=== PATIENT | male | born 1980 | race Caucasian/White ===

== ENCOUNTER 2018-04-24 15:48 | Inpatient (IN) | payer OTHER, MEDICARE ==
[~2018-04-24] VITALS: Ht 157.5 cm; Wt 54.6 kg
[~2018-04-24 15:48] MED LIST: FISH500C PO; LANTUS2P SQ; NOVONP2 SQ; ZOCO5TAB PO
[2018-04-24 15:55] VITALS: BP 120/77; PULSE 75; RESP 15; TEMP 98.1; O2SAT 100
--- NOTE | 2018-04-24 16:06 | PD ---
HPI Chief Complaint: Altered Mental Status Time Seen by Provider: 15:56 Travel History International Travel<30 days: No Contact w/Intl Traveler<30days: No Traveled to known affect area: No History of Present Illness HPI 38-year-old male presents under [place] act initiated by the Police Department. According to his paperwork he has a history of depression. He has been having trouble paying his bills and he told the police matron that he was considering "suicide by copper tapper." The patient reports that he has chronic feelings of depression. He reports that today the nurse at [facility] called him in regards to recent hospitalization at outside emergency room for a hypoglycemic episode. He told her how he was feeling psychiatrically and she called the police who placed him under Quigley act. He reports that although he does have thoughts of suicide sometimes he feels that he would never actually hurt himself because that would upset the people that he cares about. He denies any drug or alcohol use. He has no other complaints. PFSH Past Medical History Arthritis: No Asthma: No Autoimmune Disease: No Blood Disorders: No Anxiety: Yes Depression: Yes Cancer: No Cardiovascular Problems: No COPD: No Cerebrovascular Accident: No Diabetes: Yes Diminished Hearing: No Endocrine: Yes Glaucoma: No Genitourinary: No Headaches: Yes Musculoskeletal: Yes Neurologic: Yes (CEREBRAL PALSY) Psychiatric: Yes Respiratory: No Seizures: No Thyroid Disease: No Past Surgical History Abdominal Surgery: No Cardiac Surgery: No Ear Surgery: No Endocrine Surgery: No Eye Surgery: No Genitourinary Surgery: No Gynecologic Surgery: No Oral Surgery: No Thoracic Surgery: No Other Surgery: Yes (AT AGE 2 HAMSTRING SURGERY, 1994-RECONSTRUCTIVE FEET, 1996- RECONSTRUCTIVE F) Social History Alcohol Use: No Tobacco Use: No Substance Use: No Allergies-Medications (Allergen,Severity, Reaction): Coded Allergies: No Known Allergies (Verified Adverse Reaction, Unknown, 04/24/18) Reported Meds & Prescriptions Reported Meds & Active Scripts Active Reported Zocor (Simvastatin) 5 Mg Tab 5 Mg PO DAILY Fish Oil ([place]-3 Fatty Acids) 500 Mg Cap 1 Tab PO DAILY Lantus Inj (Insulin Glargine) 1,000 Unit/10 Ml Vial 32 Units SQ TID Novolin N Inj (Insulin Human NPH) 1,000 Unit/10 Ml Vial 0 SQ DIRECTED Sliding Scale As Directed. Review of Systems Except as stated in HPI: all other systems reviewed are Neg Physical Exam Narrative GENERAL: Well-developed well-nourished male in no acute distress SKIN: Warm and dry. HEAD: Atraumatic. Normocephalic. EYES: Pupils equal and round. No scleral icterus. No injection or drainage. ENT: No nasal bleeding or discharge. Mucous membranes pink and moist. NECK: Trachea midline. No JVD. CARDIOVASCULAR: Regular rate and rhythm. No murmur appreciated. RESPIRATORY: No accessory muscle use. Clear to auscultation. Breath sounds equal bilaterally. GASTROINTESTINAL: Abdomen soft, non-tender, nondistended. Hepatic and splenic margins not palpable. MUSCULOSKELETAL: No obvious deformities. No clubbing. No cyanosis. No edema. NEUROLOGICAL: Awake and alert. No obvious cranial nerve deficits. Motor grossly within normal limits. Normal speech. PSYCHIATRIC: Appropriate mood and affect; insight and judgment normal. Data Data Last Documented VS Vital Signs Date Time Temp Pulse Resp B/P (MAP) Pulse Ox O2 Delivery O2 Flow Rate FiO2 04/24/18 16:00 88 15 100 Room Air 04/24/18 15:55 98.1 120/77 (91) Orders Orders Complete Blood Count With Diff (04/24/18 16:04) Comprehensive Metabolic Panel (04/24/18 16:04) Thyroid Stimulating Hormone (04/24/18 16:04) Psych Screen (04/24/18 16:04) Drug Screen, Random Urine (04/24/18 16:04) Alcohol (Ethanol) (04/24/18 16:04) Labs Laboratory Tests Test 04/24/18 16:20 04/24/18 16:35 White Blood Count 5.8 TH/MM3 Red Blood Count 4.10 MIL/MM3 Hemoglobin 13.6 GM/DL Hematocrit 39.7 % Mean Corpuscular Volume 96.7 FL Mean Corpuscular Hemoglobin 33.0 PG Mean Corpuscular Hemoglobin Concent 34.2 % Red Cell Distribution Width 13.9 % Platelet Count 182 TH/MM3 Mean Platelet Volume 8.3 FL Neutrophils (%) (Auto) 67.5 % Lymphocytes (%) (Auto) 24.5 % Monocytes (%) (Auto) 6.5 % Eosinophils (%) (Auto) 1.0 % Basophils (%) (Auto) 0.5 % Neutrophils # (Auto) 3.9 TH/MM3 Lymphocytes # (Auto) 1.4 TH/MM3 Monocytes # (Auto) 0.4 TH/MM3 Eosinophils # (Auto) 0.1 TH/MM3 Basophils # (Auto) 0.0 TH/MM3 CBC Comment DIFF FINAL Differential Comment Blood Urea Nitrogen 14 MG/DL Creatinine 0.75 MG/DL Random Glucose 156 MG/DL Total Protein 6.2 GM/DL Albumin 2.9 GM/DL Calcium Level 8.5 MG/DL Alkaline Phosphatase 148 U/L Aspartate Amino Transf (AST/SGOT) 42 U/L Alanine Aminotransferase (ALT/SGPT) 40 U/L Total Bilirubin 0.3 MG/DL Sodium Level 142 MEQ/L Potassium Level 3.8 MEQ/L Chloride Level 105 MEQ/L Carbon Dioxide Level 27.2 MEQ/L Anion Gap 10 MEQ/L Estimat Glomerular Filtration Rate 116 ML/MIN Thyroid Stimulating Hormone 3rd Gen 3.360 uIU/ML Ethyl Alcohol Level LESS THAN 3 MG/DL Urine Opiates Screen NEG Urine Barbiturates Screen NEG Urine Amphetamines Screen NEG Urine Benzodiazepines Screen NEG Urine Cocaine Screen NEG Urine Cannabinoids Screen NEG MDM Medical Decision Making Medical Screen Exam Complete: Yes Emergency Medical Condition: Yes Medical Record Reviewed: Yes Differential Diagnosis Adjustment reaction, acute psychosis, major depressive disorder, depressive disorder not otherwise specified, substance-induced mood disorder, schizoaffective disorder Narrative Course 38-year-old male presents under Quigley act for psychiatric evaluation. Mental health screening discussed with the patient. Psychiatric screen ordered. Medically cleared. Diagnosis Primary Impression: Medical clearance for psychiatric admission Tushar Redman April 24, 2018 16:06
[2018-04-24 16:57] LABS: AUTOMATED NEUTROPHIL # 3.9 TH/MM3 (1.8-7.7); BASOPHIL % 0.5 % (0.0-2.0); EOSINOPHIL # 0.1 TH/MM3 (0-0.4); HEMATOCRIT 39.7 % (39.0-51.0); HEMOGLOBIN 13.6 GM/DL (13.0-17.0); LYMPH % 24.5 % (9.0-44.0); LYMPHOCYTE # 1.4 TH/MM3 (1.0-4.8); MEAN CELL VOLUME 96.7 FL (80.0-100.0); MEAN CORPUSCULAR HGB CONC 34.2 % (32.0-36.0); MEAN PLATELET VOLUME 8.3 FL (7.0-11.0); MONO % 6.5 % (0.0-8.0); MONOCYTE # 0.4 TH/MM3 (0-0.9); NEUT % 67.5 % (16.0-70.0); PLATELET COUNT 182 TH/MM3 (150-450); RED CELL DISTRIBUTION WIDTH 13.9 % (11.6-17.2); WHITE BLOOD COUNT 5.8 TH/MM3 (4.0-11.0)
[2018-04-24 17:12] LABS: BLOOD UREA NITROGEN 14 MG/DL (7-18)
[2018-04-24 17:21] LABS: ALBUMIN 2.9 GM/DL (3.4-5.0); ALT (GPT) 40 U/L (12-78); AST (GOT) 42 U/L (15-37); BICARBONATE 27.2 MEQ/L (21.0-32.0); CALCIUM 8.5 MG/DL (8.5-10.1); CHLORIDE 105 MEQ/L (98-107); CREATININE 0.75 MG/DL (0.60-1.30); GLOMERULAR FILTRATION RATE 116 ML/MIN (>89); GLUCOSE,RANDOM 156 MG/DL (74-106); SODIUM (NA) 142 MEQ/L (136-145)
[2018-04-24 17:22] LABS: ALKALINE PHOSPHATASE 148 U/L (45-117); TOTAL BILIRUBIN ADULT 0.3 MG/DL (0.2-1.0); TOTAL PROTEIN 6.2 GM/DL (6.4-8.2)
[2018-04-24 18:52] VITALS: BP 123/83; PULSE 92; O2SAT 97
[2018-04-24] MEDS ORDERED: NOVOLOGP2 SQ (19:08)
[2018-04-24] MEDS ORDERED: ATOR80TA45 PO (19:08)
[2018-04-24] MEDS ORDERED: LEVO88TA2 PO (19:08)
[2018-04-24] MEDS ORDERED: KEPP10002 PO (19:09)
[2018-04-24 19:12] VITALS: BP 126/90; PULSE 90; RESP 15; O2SAT 97
--- NOTE | 2018-04-24 23:41 | PD ---
Physical Exam Narrative Pt was seen and evaluated by previous provider and medically cleared. Pt has type 1 DM and requested the nurse check his glucose after he finished his meal and glucose is elevated at 489. Said he just remember he is suppose to check his glucose when he eats but did not. Pt request to be place on insulin sliding scale which has been ordered. Denies any complaints. Pt is well appearing. Pt is pending psych evaluation which would not happen until the morning. Data Data Last Documented VS Vital Signs Date Time Temp Pulse Resp B/P (MAP) Pulse Ox O2 Delivery O2 Flow Rate FiO2 04/24/18 19:12 90 15 126/90 (102) 97 Room Air 04/24/18 15:55 98.1 Orders Orders Complete Blood Count With Diff (04/24/18 16:04) Comprehensive Metabolic Panel (04/24/18 16:04) Thyroid Stimulating Hormone (04/24/18 16:04) Psych Screen (04/24/18 16:04) Drug Screen, Random Urine (04/24/18 16:04) Alcohol (Ethanol) (04/24/18 16:04) Diet 1800 Ada Cons Carb (04/24/18 Dinner) Blood Glucose Goal (Criteria) (04/24/18 23:34) Hypoglycemia 70 Mg/Dl Or < (04/24/18 23:34) Notify Dr: Other (04/24/18 23:34) Dextrose 50% In Teddy (Vial) Inj (D50w (Vi (04/24/18 23:45) Glucagon Inj (Glucagon Inj) (04/24/18 23:45) Insulin Human Reg Supp Scale (Novolin R (04/25/18 08:00) Insulin Human Reg Supp Scale (Novolin R (04/24/18 23:45) Notify Dr: Other (04/25/18 08:19) Admit Order (Ed Use Only) (04/25/18 ) Labs Laboratory Tests Test 04/24/18 16:20 04/24/18 16:35 White Blood Count 5.8 TH/MM3 Red Blood Count 4.10 MIL/MM3 Hemoglobin 13.6 GM/DL Hematocrit 39.7 % Mean Corpuscular Volume 96.7 FL Mean Corpuscular Hemoglobin 33.0 PG Mean Corpuscular Hemoglobin Concent 34.2 % Red Cell Distribution Width 13.9 % Platelet Count 182 TH/MM3 Mean Platelet Volume 8.3 FL Neutrophils (%) (Auto) 67.5 % Lymphocytes (%) (Auto) 24.5 % Monocytes (%) (Auto) 6.5 % Eosinophils (%) (Auto) 1.0 % Basophils (%) (Auto) 0.5 % Neutrophils # (Auto) 3.9 TH/MM3 Lymphocytes # (Auto) 1.4 TH/MM3 Monocytes # (Auto) 0.4 TH/MM3 Eosinophils # (Auto) 0.1 TH/MM3 Basophils # (Auto) 0.0 TH/MM3 CBC Comment DIFF FINAL Differential Comment Blood Urea Nitrogen 14 MG/DL Creatinine 0.75 MG/DL Random Glucose 156 MG/DL Total Protein 6.2 GM/DL Albumin 2.9 GM/DL Calcium Level 8.5 MG/DL Alkaline Phosphatase 148 U/L Aspartate Amino Transf (AST/SGOT) 42 U/L Alanine Aminotransferase (ALT/SGPT) 40 U/L Total Bilirubin 0.3 MG/DL Sodium Level 142 MEQ/L Potassium Level 3.8 MEQ/L Chloride Level 105 MEQ/L Carbon Dioxide Level 27.2 MEQ/L Anion Gap 10 MEQ/L Estimat Glomerular Filtration Rate 116 ML/MIN Thyroid Stimulating Hormone 3rd Gen 3.360 uIU/ML Ethyl Alcohol Level LESS THAN 3 MG/DL Urine Opiates Screen NEG Urine Barbiturates Screen NEG Urine Amphetamines Screen NEG Urine Benzodiazepines Screen NEG Urine Cocaine Screen NEG Urine Cannabinoids Screen NEG MDM Supervised Visit with NOHEMI: Yes Diagnosis Primary Impression: Medical clearance for psychiatric admission Osiris Carrera DO April 24, 2018 23:41
[2018-04-24] MEDS ORDERED: GLUCAGON 1 MG/ML VIAL OTHER PRN (23:45)
[2018-04-24] MEDS ORDERED: INSULIN NovoLIN REGULAR SUPPLEMENTAL SCALE SQ SCH (23:45)
[2018-04-24] MEDS ORDERED: DEXTROSE 50% IN WATER 50 ML VIAL(D50) IV PUSH PRN (23:45)
[2018-04-25] MEDS ORDERED: INSULIN NovoLIN REGULAR SUPPLEMENTAL SCALE SQ SCH (08:00)
[2018-04-25] MEDS ORDERED: ACETAMINOPHEN 325 MG TAB PO PRN (08:30)
[2018-04-25] MEDS ORDERED: DEXTROSE 50% IN WATER 50 ML VIAL(D50) IV PUSH PRN ×2 (08:30→14:45)
[2018-04-25] MEDS ORDERED: ALUMINUM/MAGNESIUM/SIMETH 30 ML CUP PO PRN (08:30)
[2018-04-25] MEDS ORDERED: GLUCAGON 1 MG/ML VIAL OTHER PRN ×2 (08:30→14:45)
[2018-04-25] MEDS ORDERED: MAGNESIUM HYDROXIDE SUSP 30 ML CUP PO PRN (08:30)
--- NOTE | 2018-04-25 08:38 | HHI.HP ---
Provisional Diagnosis Admission Date 04/25/2018 Orgas I. 1. Adjustment disorder with mixed disturbance of emotions and conduct Orgas II. 1. 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 Express and informed consent means consent voluntarily given in writing, by a competent person, after sufficient explanation and disclosure of the subject matter involved to enable the person to make a knowing and willful decision without any element of force, fraud, deceit, duress, or other form of constraint or coercion. This person is 18 years of age or older, is not now known to be incompetent to consent to treatment with a guardian advocate, and does not have a health care surrogate or proxy currently making medical treatment decisions. I have found this person to be one of the following: [] Competent to provide express and informed consent, as defined above, for voluntary admission to this facility and is competent to provide express and informed consent for treatment. He/she has the consistent capacity to make well reasoned, willful, and knowing decisions concerning his or her medical or mental health treatment. The person fully and consistently understands the purpose of the admission for examination/placement and is fully capable of personally exercising all rights [place] [] Incompetent to provide express and informed consent to voluntary admission, and this is incompetent to provide express and informed consent to treatment. The person must be transferred to involuntary status and a petition for a guardian advocate filed with the Circuit Court. [x] Refusing to provide express and informed consent to voluntary admission but is competent to provide express and informed consent for treatment. The person must be discharged or transferred to involuntary status. Form shall be completed within 24 hours of a person's arrival at the receiving facility and filed in the clinical record of each person: 1. Admitted on a voluntary basis 2. Permitted to provide express and informed consent to his/her own treatment 3. Allowed to transfer from involuntary to voluntary status 4. Prior to permitting a person to consent to his or her own treatment after having been previously found incompetent to consent to treatment. History of Present Illness Capacity: Has Capacity (To consent for medication/treatment) Psych Chief Complaint: Suicidal ideation HPI Mr. Evangelista is a 38-year-old male with a reported history of depression who presents under a [place]ugley act by law enforcement alleging that the patient "stated repeatedly he wants to and would consider the option of 'suicide by helicopter crew chief.'" Reviewing the electronic medical record, I note the patient was seen in consultation by Dr. Sagastume in 2004 with a diagnosis of major depression at that time. Patient seen and examined. Chart reviewed. Case discussed with staff. On my examination today, the patient reports a history of depression stretching back 30 years. He is a verbose and somewhat rambling historian. He has been feeling increasingly depressed over the last several days, chiefly secondary to financial stressors. He tells me that there is "a black spot in my soul." He tells me that he has been contemplating suicide "because [I] want the pain to stop." He tells me that he asked the officer who responded for the Quigley act to shoot him. He denies suicidal ideation presently, but this seems to be motivated and desire for discharge, and I suspect that he is not reliable to contract for safety in his present state. No hypomanic or manic symptoms. Denies any audiovisual hallucinations. Patient exhibits prominent personality disorder traits, mixed cluster B/C. He presents as needy, somewhat attention- seeking, dramatic, and has some narcissistic traits. Remainder of the psychiatric ROS is negative. No acute physical complaints. Past psychiatric history: Patient reports a history of depression. He is not presently under the care of a psychiatrist. He reports that he has historically been prescribed Prozac although this worsened his depression. He denies a history of psychiatric admissions. He reports 2 previous suicide attempts including by trying to inject air embolus with 1 of his insulin needles. Family history: Patient reports that his father struggled with some sort of mental illness and his mother completed suicide. Chemical dependency history: Patient denies any abuse of drugs or alcohol. Social history: The patient reports that he lives alone. He is single with no children. He has a pet guinea pig named popcsom. No reported access to guns or firearms. Review of Systems Except as stated in HPI: all other systems reviewed are Neg Past Family Social History Coded Allergies: No Known Allergies (Verified Adverse Reaction, Unknown, 04/24/18) Past Medical History Includes a history of cerebral palsy, diabetes and seizures Reported Medications Levetiracetam (Keppra) 1,000 Mg Tab, PO BID for Control Seizures, #60 TAB 0 Refills 04/24/18 Levothyroxine (Levothyroxine) 88 Mcg Tab, PO DAILY for Thyroid, #30 TAB 0 Refills 04/24/18 Atorvastatin (Atorvastatin) 80 Mg Tab, 80 MG PO DAILY for Cholesterol Management , #30 TAB 0 Refills 04/24/18 Insulin Aspart Inj (Novolog Inj) 1,000 Unit/10 Ml Vial, 0 SQ DIRECTED for Blood Sugar Management, #10 ML 0 Refills Sliding Scale as directed. 04/24/18 Insulin Glargine Inj (Lantus Inj) 1,000 Unit/10 Ml Vial, 34 UNITS SQ DAILY for Blood Sugar Management, VIAL 0 Refills 10/17/16 Discontinued Reported Medications Simvastatin (Zocor) 5 Mg Tab, 5 MG PO DAILY for Cholesterol Management, TAB 0 Refills 10/17/16 [place]-3 Fatty Acids (Fish Oil) 500 Mg Cap, 1 TAB PO DAILY 10/17/16 Insulin Human NPH Inj (Novolin N Inj) 1,000 Unit/10 Ml Vial, 0 SQ DIRECTED for Blood Sugar Management, ML 0 Refills Sliding Scale As Directed. 10/17/16 Current Medications Medications (Trade) Dose Ordered Sig/Sushil Route Start Time Stop Time Status Last Admin (D50w (Vial) Inj) 50 ml UNSCH PRN IV PUSH 04/24/18 23:45 (Glucagon Inj) 1 mg UNSCH PRN OTHER 04/24/18 23:45 (NovoLIN R SUPPLEMENTAL SCALE) 1 ACHS SLIDING SCALE SQ 04/24/18 23:45 04/24/18 23:58 Patient's Strengths (min. 2) In a monitored setting. Verbally fluent. Physical Exam Physical examination completed by ED provider. On my examination today, the patient appears to be in no acute physical distress. No motor abnormalities noted. He does have disconjugate gaze, likely chronic. Labs and vital signs reviewed: Vital Signs Vital Signs Date Time Temp Pulse Resp B/P (MAP) Pulse Ox O2 Delivery O2 Flow Rate FiO2 04/24/18 19:12 90 15 126/90 (102) 97 Room Air 04/24/18 15:55 98.1 Lab Results Test 04/24/18 16:20 04/24/18 16:35 White Blood Count 5.8 TH/MM3 Red Blood Count 4.10 MIL/MM3 Hemoglobin 13.6 GM/DL Hematocrit 39.7 % Mean Corpuscular Volume 96.7 FL Mean Corpuscular Hemoglobin 33.0 PG Mean Corpuscular Hemoglobin Concent 34.2 % Red Cell Distribution Width 13.9 % Platelet Count 182 TH/MM3 Mean Platelet Volume 8.3 FL Neutrophils (%) (Auto) 67.5 % Lymphocytes (%) (Auto) 24.5 % Monocytes (%) (Auto) 6.5 % Eosinophils (%) (Auto) 1.0 % Basophils (%) (Auto) 0.5 % Neutrophils # (Auto) 3.9 TH/MM3 Lymphocytes # (Auto) 1.4 TH/MM3 Monocytes # (Auto) 0.4 TH/MM3 Eosinophils # (Auto) 0.1 TH/MM3 Basophils # (Auto) 0.0 TH/MM3 CBC Comment DIFF FINAL Differential Comment Blood Urea Nitrogen 14 MG/DL Creatinine 0.75 MG/DL Random Glucose 156 MG/DL Total Protein 6.2 GM/DL Albumin 2.9 GM/DL Calcium Level 8.5 MG/DL Alkaline Phosphatase 148 U/L Aspartate Amino Transf (AST/SGOT) 42 U/L Alanine Aminotransferase (ALT/SGPT) 40 U/L Total Bilirubin 0.3 MG/DL Sodium Level 142 MEQ/L Potassium Level 3.8 MEQ/L Chloride Level 105 MEQ/L Carbon Dioxide Level 27.2 MEQ/L Anion Gap 10 MEQ/L Estimat Glomerular Filtration Rate 116 ML/MIN Thyroid Stimulating Hormone 3rd Gen 3.360 uIU/ML Ethyl Alcohol Level LESS THAN 3 MG/DL Urine Opiates Screen NEG Urine Barbiturates Screen NEG Urine Amphetamines Screen NEG Urine Benzodiazepines Screen NEG Urine Cocaine Screen NEG Urine Cannabinoids Screen NEG Mental Status Examination Appearance: Appropriate Consciousness: Alert Orientation: Person, Place (At least) Motor Activity: Other (Motor exam as above) Speech: Unremarkable Language: Adequate Fund of Knowledge: Adequate Attention and Concentration: Adequate Memory: Unremarkable (Grossly intact on clinical exam) Mood: Other (Depressed) Affect: Other (Restricted) Thought Process & Associations: Circumstantial Thought Content: Preoccupations Hallucination Type: None Delusion Type: None Suicidal Ideation: No (Unreliable to contract for safety) Suicidal Plan: No Suicidal Intention: No Homicidal Ideation: No Homicidal Plan: No Homicidal Intention: No Insight: Poor Judgment: Poor Assessment & Plan Problem List: (1) Adjustment disorder with mixed disturbance of emotions and conduct ICD Codes: F43.25 - Adjustment disorder with mixed disturbance of emotions and conduct (2) Mixed personality disorder ICD Codes: F60.89 - Other specific personality disorders Assessment & Plan 38-year-old male with psychiatric history as detailed above who presents under a Quigley act by law enforcement. On my examination today, the patient reports ongoing depression with recent suicidal ideation as noted. Although he presently denies suicidal ideation, I suspect this is motivated by his desire for discharge from the ED today, and I strongly believe that he is unreliable to contract for safety in his present state. He has multiple risk factors for self-harm including history of suicide attempts, family history of suicide attempt and prominent psychosocial stressors as well as personality disorder. I will plan to admit the patient to the inpatient psychiatric unit for observation and stabilization. Admit inpatient. Patient is declining to consent for voluntary admission. Involuntary status. I have completed first opinion. Consult for second opinion. Patient retains capacity to consent for medications. Patient is declining any psychotropic medications and so none have been ordered. Medication reconciliation was not completed by nursing staff, and I have instructed them to complete this and notify me when it is done so that I might reconcile patient's general medical medications. In the meantime, I will order Accu-Cheks, sliding scale and seizure precautions. Diabetic diet. Hospitalist consult. Vitals every shift. Counselor to see. Collateral information. Disposition planning. Estimated length of stay: 5-7 days. Discharge Planning Pending outcome of observation Request HC Surrog/Guard Advoc?: No Reilly Fields MD April 25, 2018 08:38
[2018-04-25 12:05] VITALS: BP 140/72; PULSE 106; RESP 17; TEMP 97.8; O2SAT 98
[2018-04-25] MEDS: levETIRAcetam 500 MG TAB PO SCH ×2 (14:30→20:32)
--- NOTE | 2018-04-25 14:38 | PD.CONS ---
HPI Service [facility] Hospitalists Consult Requested By Reason for Consult Medical management Primary Care Physician Unknown Diagnoses: History of Present Illness 38-year-old male with PMH significant for DM I, seizures disorder, hypothyroidism,and depression who presents to [facility] under [place] act after reporting he wanted to and considered "suicide by copy operator". Patient most recently going through some financial difficulties. [facility] has been consulted to assist with management of medical issues. Patient is seen and examined in [facility] in no acute distress. He reports that he uses both an ISS and long acting insulin to manage his DM. He reports that his diabetes is not a well controlled as it should be. He follows up with neurologist for his seizures and reports that his last seizure was around December or January of this year. He is asking when he will be discharged. He denies any fevers, chills, N/V/D, headache , dizziness, SOB, cough, dysuria or constipation. He voices no acute complaints of concerns at this moment. Review of Systems Except as stated in HPI: all other systems reviewed are Neg Past Family Social History Allergies: Coded Allergies: No Known Allergies (Verified Allergy, Unknown, 04/25/18) Past Medical History DM I hypothyroidism seizures cerebral palsy Past Surgical History Hamstring surgery reconstruction surgery of bilateral feet Tib/fib fracture surgery Reported Medications Reported Meds & Active Scripts Active Reported Keppra (Levetiracetam) 1,000 Mg Tab 1,000 Mg PO BID Levothyroxine (Levothyroxine Sodium) 88 Mcg Tab 75 Mcg PO DAILY Atorvastatin (Atorvastatin Calcium) 80 Mg Tab 80 Mg PO DAILY Novolog Inj (Insulin Aspart) 1,000 Unit/10 Ml Vial 0 SQ DIRECTED Sliding Scale as directed. Lantus Inj (Insulin Glargine) 1,000 Unit/10 Ml Vial 34 Units SQ DAILY Active Ordered Medications Current Medications Medications (Trade) Dose Ordered Sig/Sushil Route Start Time Stop Time Status Last Admin (Benadryl) 50 mg HS PRN PO 04/25/18 21:00 (Tylenol) 650 mg Q4H PRN PO 04/25/18 08:30 (Milk Of Magnesia Liq) 30 ml DAILY PRN PO 04/25/18 08:30 (Mag-Al Plus Susp Liq) 30 ml Q6H PRN PO 04/25/18 08:30 (Habitrol 21 Mg Patch.24 Hr) 1 patch DAILY PRN T-DERMAL 04/25/18 15:00 (Lipitor) 80 mg DAILY PO 04/26/18 09:00 (Levemir Inj) 34 units DAILY SQ 04/26/18 09:00 (Keppra) 1,000 mg BID PO 04/25/18 14:30 (Synthroid) 75 mcg DAILY@0600 PO 04/26/18 06:00 (D50w (Vial) Inj) 50 ml UNSCH PRN IV PUSH 04/25/18 14:45 (Glucagon Inj) 1 mg UNSCH PRN OTHER 04/25/18 14:45 (NovoLOG SUPPLEMENTAL SCALE) 1 ACHS SLIDING SCALE SQ 04/25/18 17:00 Miscellaneous Information 1 HS T-DERMAL 04/25/18 21:00 Family History Mother: DM I Social History Tobacco: occasionally when he is very stressed, none in over 1 year Alcohol: socially Illicit drugs: denies Physical Exam Vital Signs Vital Signs Date Time Temp Pulse Resp B/P (MAP) Pulse Ox O2 Delivery O2 Flow Rate FiO2 04/25/18 12:05 97.8 106 17 140/72 (94) 98 04/25/18 11:31 04/24/18 19:12 90 15 126/90 (102) 97 Room Air 04/24/18 18:52 92 123/83 (96) 97 04/24/18 16:00 88 15 100 Room Air 04/24/18 15:55 98.1 75 15 120/77 (91) 100 Physical Exam GENERAL: This is a well-nourished, well-developed patient, in no apparent distress in [facility]. SKIN: No rashes, ecchymoses or lesions. Cool and dry. HEAD: Atraumatic. Normocephalic. EYES: Pupils equal round and reactive. Extraocular motions intact. No scleral icterus. No injection or drainage. ENT: Nose without bleeding, purulent drainage. Throat without erythema. Uvula midline. Poor dentition, airway patent. NECK: Trachea midline. No JVD. Supple. CARDIOVASCULAR: Regular rate and rhythm without murmurs, gallops, or rubs. RESPIRATORY: Clear to auscultation. Breath sounds equal bilaterally. No wheezes , rales, or rhonchi. GASTROINTESTINAL: Abdomen soft, non-tender, nondistended. No palpable masses. No guarding. MUSCULOSKELETAL: Extremities without clubbing, cyanosis, or edema. No joint tenderness. No calf tenderness. NEUROLOGICAL: Awake and alert, oriented x3. Cranial nerves II through XII intact. Sensory grossly within normal limits. 5/5 muscle strength bilateral upper extremities, 4/5 in bilateral lower extremities. Normal speech. Laboratory Laboratory Tests Test 04/24/18 16:20 04/24/18 16:35 White Blood Count 5.8 Red Blood Count 4.10 Hemoglobin 13.6 Hematocrit 39.7 Mean Corpuscular Volume 96.7 Mean Corpuscular Hemoglobin 33.0 Mean Corpuscular Hemoglobin Concent 34.2 Red Cell Distribution Width 13.9 Platelet Count 182 Mean Platelet Volume 8.3 Neutrophils (%) (Auto) 67.5 Lymphocytes (%) (Auto) 24.5 Monocytes (%) (Auto) 6.5 Eosinophils (%) (Auto) 1.0 Basophils (%) (Auto) 0.5 Neutrophils # (Auto) 3.9 Lymphocytes # (Auto) 1.4 Monocytes # (Auto) 0.4 Eosinophils # (Auto) 0.1 Basophils # (Auto) 0.0 CBC Comment DIFF FINAL Differential Comment Blood Urea Nitrogen 14 Creatinine 0.75 Random Glucose 156 Total Protein 6.2 Albumin 2.9 Calcium Level 8.5 Alkaline Phosphatase 148 Aspartate Amino Transf (AST/SGOT) 42 Alanine Aminotransferase (ALT/SGPT) 40 Total Bilirubin 0.3 Sodium Level 142 Potassium Level 3.8 Chloride Level 105 Carbon Dioxide Level 27.2 Anion Gap 10 Estimat Glomerular Filtration Rate 116 Thyroid Stimulating Hormone 3rd Gen 3.360 Ethyl Alcohol Level LESS THAN 3 Urine Opiates Screen NEG Urine Barbiturates Screen NEG Urine Amphetamines Screen NEG Urine Benzodiazepines Screen NEG Urine Cocaine Screen NEG Urine Cannabinoids Screen NEG Result Diagram: 04/24/18 1620 04/24/18 1620 Assessment and Plan Assessment and Plan 38-year-old male with PMH significant for DM I, seizures disorder, hypothyroidism,and depression who presents to [facility] under [facility] act after reporting he wanted to and considered "suicide by copy operator". Depression - Treatment per psych DM I - ADA diet, resume home Levemir, Accu-checks with ISS - Adjust medications accordingly, monitor for hypoglycemia Seizure disorder -continue home dose Keppra - Monitor for seizures Hypothyroidism HLD - Continue home dose Synthroid and Lipitor DVT prophylaxis-encourage ambulation Discussed with nurse and patient. Thank you for this consultation, will continue to follow along. Addendum: I, Roberto Meehan, as the attending have reviewed and agree with the overall plan as listed above. I did evaluate the patient, he appears to be in no acute distress sitting at the table eating. Lungs are clear bilaterally, awake, alert. Cooperative with physical exam. Nursing paged around 5:55 PM stating that the patient's blood sugars were checked to be over 500, given 9 units of low-dose sliding scale insulin were still over 500 with a very minimal response. Ordering 18 units one time of insulin and will upgrade sliding scale to medium dose sliding scale. I have timed for the patient to receive Levemir tonight of 34 units (Lantus at home 34 units). Vinod Tello April 25, 2018 14:38 Roberto Meehan MD April 25, 2018 17:56
--- NOTE | 2018-04-25 14:43 | HHI.PR ---
Objective Vitals Vital Signs Date Time Temp Pulse Resp B/P (MAP) Pulse Ox O2 Delivery O2 Flow Rate FiO2 04/25/18 12:05 97.8 106 17 140/72 (94) 98 04/25/18 11:31 04/24/18 19:12 90 15 126/90 (102) 97 Room Air 04/24/18 18:52 92 123/83 (96) 97 04/24/18 16:00 88 15 100 Room Air 04/24/18 15:55 98.1 75 15 120/77 (91) 100 I/O 04/24/18 04/24/18 04/24/18 04/25/18 04/25/18 04/25/18 07:00 15:00 23:00 07:00 15:00 23:00 Output Total 500 ml Balance -500 ml Output Urine Total 500 ml # Voids 1 Result Diagram: 04/24/18 1620 04/24/18 1620 Vinod Tello April 25, 2018 14:43
[2018-04-25] MEDS ORDERED: NICOTINE 21 MG/24 HR PATCH T-DERMAL PRN (15:00)
[2018-04-25] MEDS ORDERED: INSULIN ASPART SUPPLEMENTAL SCALE SQ SCH (17:00)
[2018-04-25] MEDS ORDERED: INSULIN ASPART 1,000 UNITS/10 ML VIAL SQ ONE (18:00)
[2018-04-25] MEDS: INSULIN ASPART SUPPLEMENTAL SCALE SQ SCH (20:31)
[2018-04-25] MEDS ORDERED: INSULIN DETEMIR 100 UNITS/ML VIAL SQ SCH (21:00)
[2018-04-25] MEDS ORDERED: REMOVE OLD NICODERM (NICOTINE) PATCH T-DERMAL SCH (21:00)
[2018-04-25] MEDS ORDERED: diphenhydrAMINE HCL 50 MG CAP PO PRN (21:00)
[2018-04-26] MEDS ORDERED: LEVOTHYROXINE SODIUM 75 MCG TAB PO SCH (06:00)
[2018-04-26 06:17] VITALS: BP 112/59; PULSE 72; RESP 16; TEMP 98; O2SAT 97
[2018-04-26] MEDS: INSULIN ASPART SUPPLEMENTAL SCALE SQ SCH (08:12)
[2018-04-26 08:43] LABS: ALBUMIN 3.1 GM/DL (3.4-5.0); AST (GOT) 20 U/L (15-37); BICARBONATE 28.6 MEQ/L (21.0-32.0); BLOOD UREA NITROGEN 25 MG/DL (7-18); CALCIUM 8.8 MG/DL (8.5-10.1); CHLORIDE 101 MEQ/L (98-107); CREATININE 0.86 MG/DL (0.60-1.30); GLOMERULAR FILTRATION RATE 99 ML/MIN (>89); GLUCOSE,RANDOM 134 MG/DL (74-106); SODIUM (NA) 140 MEQ/L (136-145)
[2018-04-26 08:44] LABS: ALT (GPT) 33 U/L (12-78); CHOLESTEROL 159 MG/DL (120-200)
[2018-04-26 08:46] LABS: ALKALINE PHOSPHATASE 128 U/L (45-117); CHOLESTEROL/ HDL RATIO 2.78 RATIO; HDL CHOLESTEROL 57.1 MG/DL (40.0-60.0); LDL CHOLESTEROL 81 MG/DL (0-99); TOTAL BILIRUBIN ADULT 0.3 MG/DL (0.2-1.0); TOTAL PROTEIN 6.7 GM/DL (6.4-8.2); TRIGLYCERIDES 105 MG/DL (42-150)
[2018-04-26] MEDS: levETIRAcetam 500 MG TAB PO SCH (08:56)
[2018-04-26] MEDS ORDERED: ATORVASTATIN 80 MG TAB PO SCH (09:00)
[2018-04-26] MEDS ORDERED: INSULIN DETEMIR 100 UNITS/ML VIAL SQ SCH (09:00)
[2018-04-26] MEDS ORDERED: POTASSIUM CHLORIDE 10 MEQ CONTROLLED RELEASE TAB PO SCH (09:15)
--- NOTE | 2018-04-26 11:23 | HHI.PR ---
Subjective Remarks in no acute distress. looks comfortable with no new complaints. blood sugar trend noted. had hypoglycemic episode earlier this morning which has resolved. d/w the RN. Objective Vitals Vital Signs Date Time Temp Pulse Resp B/P (MAP) Pulse Ox O2 Delivery O2 Flow Rate FiO2 04/26/18 06:17 98.0 72 16 112/59 (76) 97 04/25/18 12:05 97.8 106 17 140/72 (94) 98 04/25/18 11:31 Result Diagram: 04/24/18 1620 04/26/18 0718 Objective Remarks GENERAL: This is a well-nourished, well-developed patient, in no apparent distress. CARDIOVASCULAR: Regular rate and regular rhythm without murmurs, gallops, or rubs. RESPIRATORY: Clear to auscultation. Breath sounds equal bilaterally. No wheezes , rales, or rhonchi. GASTROINTESTINAL: Abdomen soft, non-tender, nondistended. Normal, active bowel sounds MUSCULOSKELETAL: Extremities without clubbing, cyanosis, or edema. NEURO: Awake and alert. Medications and IVs Inpatient Medications Acetaminophen (Tylenol) 650 mg Q4H PRN PO Pain 1-5 or Temp >101F; Start at 08:30 Al Hydrox/Mg Hydrox/Simethicone (Mag-Al Plus Susp Liq) 30 ml Q6H PRN PO DYSPEPSIA; Start 04/25/18 at 08:30 Atorvastatin Calcium (Lipitor) 80 mg DAILY PO Last administered on 04/26/18at 08 :56; Start 04/26/18 at 09:00 Dextrose (D50w (Vial) Inj) 50 ml UNSCH PRN IV PUSH HYPOGLYCEMIA-SEE COMMENTS; Start 04/25/18 at 14:45 Diphenhydramine HCl (Benadryl) 50 mg HS PRN PO INSOMNIA; Start 04/25/18 at 21: 00 Glucagon (Glucagon Inj) 1 mg UNSCH PRN OTHER HYPOGLYCEMIA-SEE COMMENTS Last administered on 04/26/18at 06:35; Start 04/25/18 at 14:45 Insulin Aspart (NovoLOG SUPPLEMENTAL SCALE) 1 ACHS SLIDING SCALE SQ Last administered on 04/25/18at 20:31; Start 04/25/18 at 21:00 Insulin Aspart (NovoLOG INJ) 18 units ONCE ONCE SQ Last administered on at 18:00; Start 04/25/18 at 18:00; Stop 04/25/18 at 18:01; Status DC Insulin Detemir (Levemir Inj) 34 units HS SQ Last administered on 04/25/18at 20: 23; Start 04/25/18 at 21:00; Status Future Hold Insulin Human Regular (NovoLIN R SUPPLEMENTAL SCALE) 1 ACHS SLIDING SCALE SQ Last administered on 04/24/18at 23:58; Start 04/24/18 at 23:45; Stop 04/25/18 at 08:26; Status DC Levetriacetam (Keppra) 1,000 mg BID PO Last administered on 04/26/18at 08:56; Start 04/25/18 at 14:30 Levothyroxine Sodium (Synthroid) 75 mcg DAILY@0600 PO Last administered on 04/26at 05:56; Start 04/26/18 at 06:00 Magnesium Hydroxide (Milk Of Magnesia Liq) 30 ml DAILY PRN PO CONSTIPATION; Start 04/25/18 at 08:30 Miscellaneous Information 1 HS T-DERMAL ; Start 04/25/18 at 21:00 Nicotine (Habitrol 21 Mg Patch.24 Hr) 1 patch DAILY PRN T-DERMAL NICOTINE CRAVING; Start 04/25/18 at 15:00 Potassium Chloride (KCl) 30 meq ONCE ONCE PO ; Start 04/26/18 at 12:00; Stop at 12:01 A/P Assessment and Plan Depression - Treatment per psych DM I hypoglycemic episode this morning - ADA diet, will resume home Levemir tonight if blood sugar stable; will lower the dose to 20 units qhs , Accu-checks with ISS; changed to low scale. - Adjust medications accordingly, monitor for recurrent hypoglycemia Hypokalemia; will replace and monitor. Seizure disorder -continue home dose Keppra - Monitor for seizures Hypothyroidism HLD - Continue home dose Synthroid and Lipitor DVT prophylaxis-encourage ambulation Discussed with nurse and patient. Abraham Toney MD April 26, 2018 11:23
[2018-04-26] MEDS ORDERED: DEXTROSE 50% IN WATER 50 ML VIAL(D50) IV PUSH PRN (11:30)
[2018-04-26] MEDS ORDERED: GLUCAGON 1 MG/ML VIAL OTHER PRN (11:30)
[2018-04-26] MEDS ORDERED: POTASSIUM CHLORIDE 10 MEQ CONTROLLED RELEASE TAB PO ONE (12:00)
[2018-04-26] MEDS ORDERED: INSULIN ASPART SUPPLEMENTAL SCALE SQ SCH (12:00)
--- NOTE | 2018-04-26 14:00 | HHI.DS ---
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 Evangelista is a 38-year-old male with a reported history of depression who presents under a Quigley act by law enforcement alleging that the patient "stated repeatedly he wants to and would consider the option of 'suicide by ems helicopter pilot.'" Reviewing the electronic medical record, I note the patient was seen in consultation by Dr. Sagastume in 2004 with a diagnosis of major depression at that time. Patient seen and examined. Chart reviewed. Case discussed with staff. On my examination today, the patient reports a history of depression stretching back 30 years. He is a verbose and somewhat rambling historian. He has been feeling increasingly depressed over the last several days, chiefly secondary to financial stressors. He tells me that there is "a black spot in my soul." He tells me that he has been contemplating suicide "because [I] want the pain to stop." He tells me that he asked the officer who responded for the Quigley act to shoot him. He denies suicidal ideation presently, but this seems to be motivated and desire for discharge, and I suspect that he is not reliable to contract for safety in his present state. No hypomanic or manic symptoms. Denies any audiovisual hallucinations. Patient exhibits prominent personality disorder traits, mixed cluster B/C. He presents as needy, somewhat attention- seeking, dramatic, and has some narcissistic traits. Remainder of the psychiatric ROS is negative. No acute physical complaints. Past psychiatric history: Patient reports a history of depression. He is not presently under the care of a psychiatrist. He reports that he has historically been prescribed Prozac although this worsened his depression. He denies a history of psychiatric admissions. He reports 2 previous suicide attempts including by trying to inject air embolus with 1 of his insulin needles. Family history: Patient reports that his father struggled with some sort of mental illness and his mother completed suicide. Chemical dependency history: Patient denies any abuse of drugs or alcohol. Social history: The patient reports that he lives alone. He is single with no children. He has a pet guinea pig named saskia. No reported access to guns or firearms. Tobacco Use In Past 30 Days: Cognitive Impairment Alcohol Use: Never Hospital Course Patient seen and henry with nurse Preeti, chart reviewed, the patient compliant medication. Above brief history dictated by Dr. Reilly Fields review noted and agreed with. Patient seen by me today he is alert oriented calm and cooperative states she was under some stress before talking with the insurance person. Leading to the comments that he made. He feels his brief stay here is given him the time to process these behaviors. He realizes the inappropriateness of his suicidal ideation. He is able contract with me to do no harm. Is also able contract of some thoughts return to take himself to a local ED or to our ED and asked for psychiatric screening. He does today plan denies suicidality or homicidality voices or visions. He does wish to have some talk therapy with us I did share with him are [place] outpatient support groups. He is willing to attempt to that also. Thus at this time I feel patient does not meet Quigley criteria I will lift Quigley act allow patient to be discharged to himself, no Rx by me, he may continue his own home scheduled medications follow-up with his PCP and with the [place] health support groups Results Blood Pressure 112 / 59 Vital Signs Date Time Temp Pulse Resp B/P (MAP) Pulse Ox O2 Delivery O2 Flow Rate FiO2 04/26/18 06:17 98.0 72 16 112/59 (76) 97 04/24/18 19:12 Room Air Laboratory Tests Test 04/24/18 16:20 04/24/18 16:35 04/26/18 07:18 Red Blood Count 4.10 MIL/MM3 (4.50-5.90) Random Glucose 156 MG/DL (74-106) 134 MG/DL (74-106) Total Protein 6.2 GM/DL (6.4-8.2) Albumin 2.9 GM/DL (3.4-5.0) 3.1 GM/DL (3.4-5.0) Alkaline Phosphatase 148 U/L (45-117) 128 U/L (45-117) Aspartate Amino Transf (AST/SGOT) 42 U/L (15-37) Blood Urea Nitrogen 25 MG/DL (7-18) Potassium Level 3.0 MEQ/L (3.5-5.1) Laboratory Results Test 04/26/18 07:18 Cholesterol Level 159 MG/DL (120-200) HDL Cholesterol 57.1 MG/DL (40.0-60.0) LDL Cholesterol 81 MG/DL (0-99) Triglycerides Level 105 MG/DL (42-150) Summary of Procedures None done Pending results at discharge: No Medications # of Antipsychotic meds at D/C: 0 Approp Antipsych med options 1 - Minimum of three failed multiple trials of monotherapy. 2 - Documented plan to taper to monotherapy due to previous use of multiple meds OR cross-taper in progress at D/C. 3 - Documentation of augmentation of Clozapine. 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 Diagnosis: Secondary ICD Code: F60.89 - Other specific personality disorders Pt Condition on Discharge: Stable Discharge Disposition: Discharge Home Discharge Instructions Diet Instructions: As Tolerated, No Restrictions Activities you can perform: Regular-No Restrictions Scheduled Appointment: [facility] outpatient support groups Discharge Time > 30 minutes Mental Status Examination Appearance: Appropriate Consciousness: Alert Orientation: Person, Place (At least) Motor Activity: Other (Motor exam as above) Speech: Unremarkable Language: Adequate Fund of Knowledge: Adequate Attention and Concentration: Adequate Memory: Unremarkable (Grossly intact on clinical exam) Mood: Other (Depressed) Affect: Other (Restricted) Thought Process & Associations: Circumstantial Thought Content: Preoccupations Hallucination Type: None Delusion Type: None Suicidal Ideation: No (Unreliable to contract for safety) Suicidal Plan: No Suicidal Intention: No Homicidal Ideation: No Homicidal Plan: No Homicidal Intention: No Insight: Poor Judgment: Poor Discharge/Advance Care Plan Health Problems: (1) 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 Teo Bynum at Smoking is Dangerous to Your Health. Avoid second hand smoking Teo Bynum MD April 26, 2018 14:00
[2018-04-26 16:04] LABS: HEMOGLOBIN A1C 9.3 % (4.3-6.0)
== END 2018-04-26 15:20 | disposition home or self-care (01) | DRG 882 ==
LOC: NEPD 15:48 → NEDA 04-25 08:22 → H270 04-25 11:50
PROVIDERS: ADMIT Psychiatry & Neurology Psychiatry; ATTEND Psychiatry & Neurology Psychiatry
DX: F43.25 Adjustment disorder with mixed disturbance of emotions and conduct (principal); E10.649 Type 1 diabetes mellitus with hypoglycemia without coma; Z79.4 Long term (current) use of insulin; G40.909 Epilepsy, unspecified, not intractable, without status epilepticus; E03.9 Hypothyroidism, unspecified; F60.89 Other specific personality disorders; Z81.8 Family history of other mental and behavioral disorders; G80.9 Cerebral palsy, unspecified; E78.5 Hyperlipidemia, unspecified; E87.6 Hypokalemia; Z87.891 Personal history of nicotine dependence
CPT/HCPCS: 80053; 80061; 80307; 82947; 82948; 83036; 84443; 85025; 96372; J1610; J1815

== ENCOUNTER 2018-05-08 14:06 | Emergency (ER) | payer OTHER ==
[~2018-05-08] VITALS: Ht 162.6 cm; Wt 65.0 kg
[~2018-05-08 14:06] MED LIST changes: +ATOR80TA45 PO; -FISH500C PO; +KEPP10002 PO; +LEVO88TA2 PO; +NOVOLOGP2 SQ; -NOVONP2 SQ; -ZOCO5TAB PO
[2018-05-08 14:32] VITALS: BP 137/74; PULSE 91; RESP 17; TEMP 97.8; O2SAT 97
--- NOTE | 2018-05-08 14:45 | PD ---
HPI Chief Complaint: Psychiatric Symptoms Time Seen by Provider: 14:30 Travel History International Travel<30 days: No Contact w/Intl Traveler<30days: No Traveled to known affect area: No History of Present Illness HPI 58-year-old male presents under Quigley act initiated by the [employer]. According to his paperwork, "subject was on the phone with the hospital with a follow-up. Stated to Mely at 723 that she had a plan to kill himself involving slitting his wrists and injecting air into his body. Today on 05/08/2018 subject stated he talked himself out of it but RP called to have well being checked on." Patient reports that he was recently hospitalized at [facility] for treatment of DKA. He had a routine follow-up on the phone this morning and he did tell the person on the phone that he has depression has had occasional passive suicidal thoughts but denies any active suicidal ideation. He denies any homicidal ideation, auditory or visual hallucination, drug or alcohol use. No other complaints at this time. PFSH Past Medical History Arthritis: No Asthma: No Autoimmune Disease: No Blood Disorders: No Anxiety: Yes Depression: Yes Cancer: No Cardiovascular Problems: No COPD: No Cerebrovascular Accident: No Diabetes: Yes Diminished Hearing: No Endocrine: Yes Glaucoma: No Genitourinary: No Headaches: Yes Musculoskeletal: Yes Neurologic: Yes (CEREBRAL PALSY) Psychiatric: Yes Reproductive: No Respiratory: No Seizures: No Thyroid Disease: No Past Surgical History Abdominal Surgery: No Cardiac Surgery: No Ear Surgery: No Endocrine Surgery: No Eye Surgery: No Genitourinary Surgery: No Gynecologic Surgery: No Insulin Pump: No Oral Surgery: No Thoracic Surgery: No Other Surgery: Yes (AT AGE 2 HAMSTRING SURGERY, 1994-RECONSTRUCTIVE FEET, 1996- RECONSTRUCTIVE F) Social History Alcohol Use: Yes (OCASSIONALLY) Tobacco Use: No Substance Use: No Allergies-Medications (Allergen,Severity, Reaction): Coded Allergies: No Known Allergies (Verified Allergy, Unknown, 04/25/18) Reported Meds & Prescriptions Reported Meds & Active Scripts Active Reported Keppra (Levetiracetam) 1,000 Mg Tab 1,000 Mg PO BID Levothyroxine (Levothyroxine Sodium) 88 Mcg Tab 75 Mcg PO DAILY Atorvastatin (Atorvastatin Calcium) 80 Mg Tab 80 Mg PO DAILY Novolog Inj (Insulin Aspart) 1,000 Unit/10 Ml Vial 0 SQ DIRECTED Sliding Scale as directed. Lantus Inj (Insulin Glargine) 1,000 Unit/10 Ml Vial 34 Units SQ DAILY Review of Systems Except as stated in HPI: all other systems reviewed are Neg Physical Exam Narrative GENERAL: Well-developed well-nourished male in no acute distress SKIN: Warm and dry. HEAD: Atraumatic. Normocephalic. EYES: Pupils equal and round. No scleral icterus. No injection or drainage. ENT: No nasal bleeding or discharge. Mucous membranes pink and moist. NECK: Trachea midline. No JVD. CARDIOVASCULAR: Regular rate and rhythm. No murmur appreciated. RESPIRATORY: No accessory muscle use. Clear to auscultation. Breath sounds equal bilaterally. GASTROINTESTINAL: Abdomen soft, non-tender, nondistended. Hepatic and splenic margins not palpable. MUSCULOSKELETAL: No obvious deformities. No clubbing. No cyanosis. No edema. NEUROLOGICAL: Awake and alert. No obvious cranial nerve deficits. Motor grossly within normal limits. Normal speech. PSYCHIATRIC: Appropriate mood and affect; insight and judgment normal. Data Data Last Documented VS Vital Signs Date Time Temp Pulse Resp B/P (MAP) Pulse Ox O2 Delivery O2 Flow Rate FiO2 05/08/18 14:32 97.8 91 17 137/74 (95) 97 Orders Orders Complete Blood Count With Diff (05/08/18 14:40) Comprehensive Metabolic Panel (05/08/18 14:40) Thyroid Stimulating Hormone (05/08/18 14:40) Psych Screen (05/08/18 14:40) Drug Screen, Random Urine (05/08/18 14:40) Alcohol (Ethanol) (05/08/18 14:40) Labs Laboratory Tests Test 05/08/18 14:50 05/08/18 14:55 White Blood Count 6.4 TH/MM3 Red Blood Count 4.24 MIL/MM3 Hemoglobin 14.0 GM/DL Hematocrit 41.6 % Mean Corpuscular Volume 98.2 FL Mean Corpuscular Hemoglobin 33.0 PG Mean Corpuscular Hemoglobin Concent 33.6 % Red Cell Distribution Width 14.6 % Platelet Count 230 TH/MM3 Mean Platelet Volume 8.2 FL Neutrophils (%) (Auto) 70.2 % Lymphocytes (%) (Auto) 21.5 % Monocytes (%) (Auto) 6.9 % Eosinophils (%) (Auto) 0.9 % Basophils (%) (Auto) 0.5 % Neutrophils # (Auto) 4.5 TH/MM3 Lymphocytes # (Auto) 1.4 TH/MM3 Monocytes # (Auto) 0.4 TH/MM3 Eosinophils # (Auto) 0.1 TH/MM3 Basophils # (Auto) 0.0 TH/MM3 CBC Comment DIFF FINAL Differential Comment Blood Urea Nitrogen 11 MG/DL Creatinine 0.61 MG/DL Random Glucose 126 MG/DL Total Protein 6.6 GM/DL Albumin 3.3 GM/DL Calcium Level 8.7 MG/DL Alkaline Phosphatase 168 U/L Aspartate Amino Transf (AST/SGOT) 202 U/L Alanine Aminotransferase (ALT/SGPT) 154 U/L Total Bilirubin 0.3 MG/DL Sodium Level 140 MEQ/L Potassium Level 3.7 MEQ/L Chloride Level 104 MEQ/L Carbon Dioxide Level 26.8 MEQ/L Anion Gap 9 MEQ/L Estimat Glomerular Filtration Rate 147 ML/MIN Thyroid Stimulating Hormone 3rd Gen 2.340 uIU/ML Ethyl Alcohol Level LESS THAN 3 MG/DL Urine Opiates Screen NEG Urine Barbiturates Screen NEG Urine Amphetamines Screen NEG Urine Benzodiazepines Screen NEG Urine Cocaine Screen NEG Urine Cannabinoids Screen NEG MDM Medical Decision Making Medical Screen Exam Complete: Yes Emergency Medical Condition: Yes Medical Record Reviewed: Yes Differential Diagnosis Adjustment reaction, major depressive disorder, depressive disorder not otherwise specified, acute psychosis, substance-induced mood disorder Narrative Course 38-year-old male presents under Quigley act for psychiatric evaluation. Mental health screening discussed with the patient. Psychiatric screen ordered. Lab work has been reviewed, CBC is unremarkable, CMP reveals an AST of 202 ALT 154 otherwise unremarkable, toxicology screen is negative. Patient is medically cleared for psychiatric disposition. Diagnosis Primary Impression: Medical clearance for psychiatric admission Tushar Redman May 08, 2018 14:45
[2018-05-08 15:26] LABS: AUTOMATED NEUTROPHIL # 4.5 TH/MM3 (1.8-7.7); BASOPHIL % 0.5 % (0.0-2.0); EOSINOPHIL # 0.1 TH/MM3 (0-0.4); EOSINOPHIL % 0.9 % (0.0-4.0); HEMATOCRIT 41.6 % (39.0-51.0); LYMPH % 21.5 % (9.0-44.0); LYMPHOCYTE # 1.4 TH/MM3 (1.0-4.8); MEAN CELL VOLUME 98.2 FL (80.0-100.0); MEAN CORPUSCULAR HGB CONC 33.6 % (32.0-36.0); MEAN PLATELET VOLUME 8.2 FL (7.0-11.0); MONO % 6.9 % (0.0-8.0); MONOCYTE # 0.4 TH/MM3 (0-0.9); NEUT % 70.2 % (16.0-70.0); PLATELET COUNT 230 TH/MM3 (150-450); RED BLOOD COUNT 4.24 MIL/MM3 (4.50-5.90); RED CELL DISTRIBUTION WIDTH 14.6 % (11.6-17.2); WHITE BLOOD COUNT 6.4 TH/MM3 (4.0-11.0)
[2018-05-08 16:01] LABS: ALBUMIN 3.3 GM/DL (3.4-5.0); ALT (GPT) 154 U/L (12-78); AST (GOT) 202 U/L (15-37); BICARBONATE 26.8 MEQ/L (21.0-32.0); BLOOD UREA NITROGEN 11 MG/DL (7-18); CALCIUM 8.7 MG/DL (8.5-10.1); CHLORIDE 104 MEQ/L (98-107); CREATININE 0.61 MG/DL (0.60-1.30); GLOMERULAR FILTRATION RATE 147 ML/MIN (>89); GLUCOSE,RANDOM 126 MG/DL (74-106); SODIUM (NA) 140 MEQ/L (136-145)
[2018-05-08 16:11] LABS: ALKALINE PHOSPHATASE 168 U/L (45-117); TOTAL BILIRUBIN ADULT 0.3 MG/DL (0.2-1.0); TOTAL PROTEIN 6.6 GM/DL (6.4-8.2)
[2018-05-08] MEDS ORDERED: GLUCAGON 1 MG/ML VIAL OTHER PRN (16:30)
[2018-05-08] MEDS ORDERED: DEXTROSE 50% IN WATER 50 ML VIAL(D50) IV PUSH PRN (16:30)
[2018-05-08] MEDS ORDERED: INSULIN NovoLIN REGULAR SUPPLEMENTAL SCALE SQ SCH (17:00)
--- NOTE | 2018-05-08 18:01 | PD ---
History of Present Illness Chief Complaint: Psychiatric Symptoms Time Seen by Provider: 17:40 Travel History International Travel<30 Days: No Contact w/Intl Traveler<30days: No Known affected area: No History of Present Illness: Patient is a 38-year-old male with cerebral palsy, epilepsy, who was placed under Quigley act by [place] [employer]. Quigley act states, subject was on the phone with the hospital was a follow up. Stated to Mely at 703 that he had a plan to kill himself involving sitting his wrist." Patient was admitted to [facility] in [place] and was treated for DKA and released. The follow up call was from the clinical staff to check on him. He endorses that it was a misunderstanding and he did not mean to make comments that would sound like he would harm himself. He was at [facility] on 04/25/18 under a Quigley Act where he also made comments. His current blood sugar is 124. He is followed by Dr. Teo Ware. He has a PCP and Endocrinology appointment this week. He endorses no suicidal or homicidal ideas. Chart reviewed and discussed with nurse. Patient is in a hospital gown in room CD30 in the emergency department. Fund of knowledge is poor. Eye contact is good. No abnormal thoughts. Recent and remote recall normal. Attention and concentration is good. Patient endorses no suicidal ideation. Based on patient's presentation will lift Quigley act. Patient is at low risk for self-harm or harming others. Patient will need assistance with transition back to his apartment in [place]. Dx: Adjustment Disorder PFSH Past Medical History Arthritis: No Asthma: No Autoimmune Disease: No Blood Disorders: No Anxiety: Yes Depression: Yes Cancer: No Cardiovascular Problems: No COPD: No Cerebrovascular Accident: No Diabetes: Yes Diminished Hearing: No Endocrine: Yes Glaucoma: No Genitourinary: No Headaches: Yes Musculoskeletal: Yes Neurologic: Yes (CEREBRAL PALSY) Psychiatric: Yes Reproductive: No Respiratory: No Seizures: No Thyroid Disease: No Past Surgical History Abdominal Surgery: No Cardiac Surgery: No Ear Surgery: No Endocrine Surgery: No Eye Surgery: No Genitourinary Surgery: No Gynecologic Surgery: No Insulin Pump: No Oral Surgery: No Thoracic Surgery: No Other Surgery: Yes (AT AGE 2 HAMSTRING SURGERY, 1994-RECONSTRUCTIVE FEET, 1996- RECONSTRUCTIVE F) Psychiatric History Psychiatric History tried prozac some years ago , but is not currently under psychiatric care. Hx Psychiatric Treatment: TRIED PROZAC ONCE PRESCRIBED BY PCP History of Inpatient Treatment: No Social History Hx Alcohol Use: Yes (OCASSIONALLY) Hx Tobacco Use: No Hx Substance Use: No Allergies-Medications (Allergen,Severity, Reaction): Coded Allergies: No Known Allergies (Verified Allergy, Unknown, 04/25/18) Reported Meds & Prescriptions Reported Meds & Active Scripts Active Reported Keppra (Levetiracetam) 1,000 Mg Tab 1,000 Mg PO BID Levothyroxine (Levothyroxine Sodium) 88 Mcg Tab 75 Mcg PO DAILY Atorvastatin (Atorvastatin Calcium) 80 Mg Tab 80 Mg PO DAILY Novolog Inj (Insulin Aspart) 1,000 Unit/10 Ml Vial 0 SQ DIRECTED Sliding Scale as directed. Lantus Inj (Insulin Glargine) 1,000 Unit/10 Ml Vial 34 Units SQ DAILY Mental Status Examination Appearance: Appropriate Consciousness: Alert Orientation: Person Motor Activity: Normal gait Speech: Unremarkable Language: Adequate Fund of Knowledge: Adequate Attention and Concentration: Adequate Memory: Unremarkable Mood: Appropriate Affect: Euthymic Thought Process & Associations: Intact Thought Content: Appropriate Hallucination Type: None Delusion Type: None Suicidal Ideation: No Suicidal Plan: No Suicidal Intention: No Homicidal Ideation: No Homicidal Plan: No Homicidal Intention: No Insight: Adequate Judgment: Adequate MDM Medical Decision Making Medical Record Reviewed: Yes Assessment/Plan Patient is a 38-year-old male with cerebral palsy, epilepsy. He was placed under a Quigley act by [place] [employer]. He was seen in our [facility] for DKA and and received a follow-up call from clinical staff from the hospital. He admits to making comments that were not what he was thinking which caused him to be placed under Quigley acted. Sada is no suicidal ideations at this time. Patient is at low risk for self-harm and harming others. Patient does not meet Quigley admission criteria. Quigley Act lifted. Patient will need assistance returning to his apartment in [place]. Orders Orders Complete Blood Count With Diff (05/08/18 14:40) Comprehensive Metabolic Panel (05/08/18 14:40) Thyroid Stimulating Hormone (05/08/18 14:40) Psych Screen (05/08/18 14:40) Drug Screen, Random Urine (05/08/18 14:40) Alcohol (Ethanol) (05/08/18 14:40) Bedside Glucose JENNA.CSUGAR (05/08/18 16:29) Blood Glucose Goal (Criteria) (05/08/18 16:29) Hypoglycemia 70 Mg/Dl Or < (05/08/18 16:29) Notify Dr: Other (05/08/18 16:29) Dextrose 50% In Teddy (Vial) Inj (D50w (Vi (05/08/18 16:30) Glucagon Inj (Glucagon Inj) (05/08/18 16:30) Insulin Human Reg Supp Scale (Novolin R (05/08/18 17:00) Diet Diabetic (05/08/18 Dinner) Results Vital Signs Date Time Temp Pulse Resp B/P (MAP) Pulse Ox O2 Delivery O2 Flow Rate FiO2 05/08/18 14:32 97.8 91 17 137/74 (95) 97 Laboratory Tests Test 05/08/18 14:50 05/08/18 14:55 White Blood Count 6.4 Red Blood Count 4.24 Hemoglobin 14.0 Hematocrit 41.6 Mean Corpuscular Volume 98.2 Mean Corpuscular Hemoglobin 33.0 Mean Corpuscular Hemoglobin Concent 33.6 Red Cell Distribution Width 14.6 Platelet Count 230 Mean Platelet Volume 8.2 Neutrophils (%) (Auto) 70.2 Lymphocytes (%) (Auto) 21.5 Monocytes (%) (Auto) 6.9 Eosinophils (%) (Auto) 0.9 Basophils (%) (Auto) 0.5 Neutrophils # (Auto) 4.5 Lymphocytes # (Auto) 1.4 Monocytes # (Auto) 0.4 Eosinophils # (Auto) 0.1 Basophils # (Auto) 0.0 CBC Comment DIFF FINAL Differential Comment Blood Urea Nitrogen 11 Creatinine 0.61 Random Glucose 126 Total Protein 6.6 Albumin 3.3 Calcium Level 8.7 Alkaline Phosphatase 168 Aspartate Amino Transf (AST/SGOT) 202 Alanine Aminotransferase (ALT/SGPT) 154 Total Bilirubin 0.3 Sodium Level 140 Potassium Level 3.7 Chloride Level 104 Carbon Dioxide Level 26.8 Anion Gap 9 Estimat Glomerular Filtration Rate 147 Thyroid Stimulating Hormone 3rd Gen 2.340 Ethyl Alcohol Level LESS THAN 3 Urine Opiates Screen NEG Urine Barbiturates Screen NEG Urine Amphetamines Screen NEG Urine Benzodiazepines Screen NEG Urine Cocaine Screen NEG Urine Cannabinoids Screen NEG Diagnosis Primary Impression: Adjustment disorder Disposition: 01 DISCHARGE HOME Condition: Stable Teresa Kim May 08, 2018 18:01
== END 2018-05-08 20:36 | disposition home or self-care (01) ==
LOC: NEPC 14:06
DX: F43.23 Adjustment disorder with mixed anxiety and depressed mood (principal); E11.10 Type 2 diabetes mellitus with ketoacidosis without coma; G80.9 Cerebral palsy, unspecified; G40.909 Epilepsy, unspecified, not intractable, without status epilepticus; Z79.4 Long term (current) use of insulin; Z79.899 Other long term (current) drug therapy
CPT/HCPCS: 80053; 80307; 84443; 85025; 99284